=== PATIENT | female | born 1970 | race African-American/Black ===

== ENCOUNTER 2019-04-19 13:44 | Emergency (ER) | payer MEDICARE ==
[~2019-04-19] VITALS: Ht 162.6 cm; Wt 113.6 kg
[2019-04-19 13:46] VITALS: Ht 162.6 cm; Wt 113.6 kg
[2019-04-19] MEDS ORDERED: PAXIL CR25 MG PO (13:50)
[2019-04-19] MEDS ORDERED: RISPERDAL4 MG PO (13:50)
[2019-04-19] MEDS ORDERED: DESMOPRESSIN A0.2 MG PO (13:51)
[2019-04-19] MEDS ORDERED: ALPHAGAN P 0.155 ML EACH EYE (13:51)
[2019-04-19] MEDS ORDERED: BENZTROPINE MESY2 MG PO (13:51)
[2019-04-19] MEDS ORDERED: LIPITOR20 MG PO (13:51)
[2019-04-19] MEDS ORDERED: NEURONTIN800 MG PO (13:52)
[2019-04-19] MEDS ORDERED: AVAPRO300 MG PO (13:52)
[2019-04-19] MEDS ORDERED: IRON SULFATE PO (13:53)
[2019-04-19] MEDS ORDERED: TOPROL XL50 MG PO (13:54)
[2019-04-19] MEDS ORDERED: LANTUS INSULIN SQ (13:54)
[2019-04-19] MEDS ORDERED: XALATAN 0.0052.5 ML EACH EYE (13:54)
[2019-04-19] MEDS ORDERED: TRAJENTA PO (13:55)
[2019-04-19] MEDS ORDERED: PROCARDIA XL60 MG PO (13:55)
[2019-04-19] MEDS ORDERED: OMEPRAZOLE20 M1 PO (13:55)
[2019-04-19] MEDS ORDERED: TIMOPTIC 0.25% O5 M1 EACH EYE (13:56)
[2019-04-19 14:28] LABS: APPEARANCE CLOUDY (CLEAR); BILIRUBIN NEGATIVE (NEGATIVE); COLOR YELLOW (YELLOW); GLUCOSE NEGATIVE (NEGATIVE); KETONE NEGATIVE (NEGATIVE); NITRITE NEGATIVE (NEGATIVE); PROTEIN 2+ mg/dL (NEGATIVE); SPECIFIC GRAVITY 1.015 (1.005-1.020); UROBILINOGEN NORMAL (NORMAL)
[2019-04-19 14:29] LABS: BACTERIA MODERATE /hpf (NEGATIVE); WHITE CELLS - URINE 25-50 /hpf (NEGATIVE)
[2019-04-19 14:53] LABS: BASOPHILS 0 % (0-2); EOSINOPHILS 1.2 % (0-7); HEMOGLOBIN 11.9 g/dL (12-16); IMMATURE GRANULOCYTES 0.2 % (0-5); LYMPHOCYTES 28.3 % (15-50); MCH 27.6 pg (26.0-34.0); MCHC 29.8 g/dL (31.0-37.0); MCV 92.8 fL (80.0-100.0); MEAN PLATELET VOLUME 10.5 fL (7.4-10.4); MONOCYTES 7.4 % (2-11); NEUTROPHILS 62.9 % (40-80); PLATELET COUNT 126 10x3/uL (130-400); RBC 4.31 10x6/uL (4.00-5.40); RDW 14.6 % (11.5-14.5); WBC 4.8 10x3/uL (4.8-10.8)
[2019-04-19 14:57] LABS: ANION GAP 10.1 mmol/L (8-16); CARBON DIOXIDE 30.4 mmol/L (21.0-32.0); CREATININE - SERUM 2.2 mg/dL (0.6-1.3); POTASSIUM - SERUM 3.5 mmol/L (3.5-5.1)
[2019-04-19 15:02] LABS: UDS - AMPHET NEGATIVE QUAL (NEGATIVE); UDS - BARB NEGATIVE QUAL (NEGATIVE); UDS - BENZO NEGATIVE QUAL (NEGATIVE); UDS - COCAINE NEGATIVE QUAL (NEGATIVE); UDS - OPIATE NEGATIVE QUAL (NEGATIVE); UDS - PCP NEGATIVE QUAL (NEGATIVE); UDS - THC NEGATIVE QUAL (NEGATIVE)
[2019-04-19 15:04] LABS: ALBUMIN 2.5 g/dL (3.4-5.0); BILIRUBIN - TOTAL 0.23 mg/dL (0.2-1.3); PROTEIN - SERUM 7.6 g/dL (6.4-8.2)
[2019-04-19] MEDS ORDERED: KEFLEX500 MG PO (15:58)
[2019-04-19] MEDS ORDERED: MACROBID100 MG PO (15:58)
[2019-04-19 17:34] VITALS: BP 148/89
== END 2019-04-19 17:35 | disposition home or self-care (01) ==
LOC: D.ER 13:44
PROVIDERS: Family Medicine
DX: E04.9 Nontoxic goiter, unspecified (principal); W19.XXXA Unspecified fall, initial encounter; Y93.89 Activity, other specified; R55 Syncope and collapse; N39.0 Urinary tract infection, site not specified; I10 Essential (primary) hypertension; E11.9 Type 2 diabetes mellitus without complications; G47.30 Sleep apnea, unspecified; K21.9 Gastro-esophageal reflux disease without esophagitis